=== PATIENT | male | born 1950 | race Caucasian/White ===

== ENCOUNTER 2023-07-18 07:57 | Day surgery (SDC) | payer MEDICARE, BC, SELFPAY ==
--- NOTE | 2023-07-18 | PATH_ITS ---
[facility] Accession Number: [id number] No. of containers..02 Tissue . 01 Material submitted: . PART A: colon - SIGMOID POLYP PART B: rectum - RECTAL POLYP . 01 Diagnosis: A-COLON, SIGMOID, POLYP BIOPSY: BENIGN POLYPOID COLONIC MUCOSA WITH FOCAL HYPERTROPHIC MUSCULARIS MUCOSAE SUGGESTIVE OF POSSIBLE BENIGN COLONIC LEIOMYOMA. NEGATIVE FOR HYPERPLASIA OR DYSPLASIA. SEE NOTE - B- COLON, RECTUM, POLYP BIOPSY: MULTIPLE FRAGMENTS OF TUBULAR ADENOMA/S - Note for part A: Multiple levels were performed and shows focal hypertrophic muscularis mucosae suggestive of focal benign colonic leiomyoma, and was negative for dysplasia. TXN 07/31/2023 1412 Local . 01 Electronically signed: . Martin Worthy MD, Pathologist NPI- [id number] . 01 Gross description: . Part A: SIGMOID POLYP: Received in formalin is 1 fragment(s) of walker, soft tissue measuring 0.8 x 0.6 x 0.4 cm submitted entirely in 1 cassette(s) Part B: RECTAL POLYP: Received in formalin is 4 fragment(s) of walker, soft tissue measuring 0.6 x 0.4 x 0.4 cm to 0.2 x 0.1 x 0.1 cm submitted entirely in 1 cassette(s) /AAY 07/23/2023 0736 Local . 01 Pathologist provided ICD-10: Z12.11 . 01 CPT . 149496, 464484 Specimen Comment: A courtesy copy of this report has been sent to [phone] Performed at: 01 [facility] [address] [place] [address] Suite [facility], [place], [place] [id number] MD Diego Perdomo MD Phone: [phone]
[2023-07-18 08:24] VITALS: BMI 23.7
[2023-07-18] MEDS: LACTATED RINGERS 1,000 ML 42 ML IV (08:41)
--- NOTE | 2023-07-18 09:28 | PM.HP.1 ---
History of Present Illness History of Present Illness Date Patient Seen: 07/18/23 Time Patient Seen: 09:28 Chief complaint: Screening Colonoscopy Narrative: Rashi is a 72-year-old man who is here for colonoscopy. His last 1 was approximately 5 years ago in [place]. He believes he has had polyps removed. He has no known family history of colon cancer. PFSH Social History household members: spouse Smoking Status: Never smoker alcohol intake: current Meds Home Medications and Allergies Home Medications Medication Instructions Recorded Confirmed Type sodium sul 1.479 gram-potas ch See Rx Instructions PO PER PKG DIR 05/27/23 07/18/23 Rx 0.188 gram-magnes sul 0.225 gram #24 tabs tablet (Sutab) valacyclovir 1 gram tablet 1,000 mg PO TID 7 days #21 tabs 07/13/23 07/18/23 Rx benazepril 40 mg tablet 40 mg PO DAILY 07/18/23 07/18/23 History tamsulosin 0.4 mg capsule 0.4 mg PO DAILY 07/18/23 07/18/23 History Allergies Allergy/AdvReac Type Severity Reaction Status Date / Time No Known Drug Allergies Allergy Unverified 07/13/23 14:11 Exam Const General: healthy appearing Assessment & Plan Assessment and plan (1) History of colon polyps: Status: Acute Plan We reviewed the risks and benefits of colonoscopy for colon cancer screening and he would like to proceed.
--- NOTE | 2023-07-18 10:05 | PM.OP.COLON ---
Operative Date/Time/Diagnoses Date of procedure: 07/18/23 Time of procedure: 10:05 Pre-op diagnosis: History of polyps Post-op diagnosis: same Procedure & Clinicians Study performed: Colonoscopy Same procedure as scheduled: Yes Surgeon: Zane Antoine Procedure Notes Procedure in detail: Surgeon: Zane Antoine MD Anesthesia: Freddie Bhandari CRNA Procedure: The patient was brought to the endoscopy suite, placed in left lateral decubitus position. The patient was connected to monitoring devices. A time-out was performed. Sedation was administered. Once the patient was adequately sedated, a digital rectal exam was performed and was normal. The scope was then inserted and advanced to the cecum where the appendiceal orifice was identified and photographed. The scope was then slowly withdrawn over greater than 6 minutes. The mucosa was thoroughly inspected. There was moderate sigmoid diverticulosis. There was a 1 cm polyp in the sigmoid colon removed with a hot snare. There was a flat 8 mm polyp in the rectum removed with a hot snare. The scope was retroflexed in the rectum. No other abnormalities were seen. The scope was straightened and removed. The patient was awakened and brought to recovery. Scope withdrawal time: 11 minutes Sedation time: 21 minutes EBL: 2 mL Findings: 1 cm polyp sigmoid and 8 mm polyp in the rectum Post-procedure Disposition: PACU
[2023-07-18 10:06] VITALS: BP 115/65; PULSE 52; RESP 17; TEMP 36.2; O2SAT 92
[2023-07-18 10:11] VITALS: BP 107/66; PULSE 46; RESP 27; O2SAT 94
[2023-07-18 10:16] VITALS: BP 125/77; PULSE 45; RESP 18; O2SAT 95
[2023-07-18 10:26] VITALS: BP 153/88; PULSE 45; RESP 11; O2SAT 100
== END 2023-07-18 10:42 | disposition home or self-care (01) ==
PROVIDERS: PCP Family Medicine; Referring Provider Surgery; Visit Provider Surgery
PROC: 0DJD8ZZ Inspection of Lower Intestinal Tract, Via Natural or Artificial Opening Endoscopic (ICD-10-PCS; CPT 45378; principal; 2023-07-18 09:15)
DX: Z12.11 Encounter for screening for malignant neoplasm of colon (principal); Z86.010 Personal history of colon polyps; K57.30 Diverticulosis of large intestine without perforation or abscess without bleeding; D12.6 Benign neoplasm of colon, unspecified
CPT/HCPCS: 45385; J2704

== ENCOUNTER → 2024-03-08 09:17 | Outpatient (CLI) | payer MEDICARE, BC, SELFPAY ==
[2024-03-08 10:26] LABS: Influenza A - CEPHEID Flu A NEGATIVE (NEGATIVE); Influenza B - CEPHEID Flu B NEGATIVE (NEGATIVE); Respiratory Syncytial Virus Negative (Negative)
[2024-03-08 10:27] LABS: COVID-19 CEPHEID 4-PLEX PCR Negative (Negative)
== END ==
PROVIDERS: PCP Family Medicine; Visit Provider Physician Assistant Medical
DX: R05.1 Acute cough (principal)
CPT/HCPCS: 0241U

== ENCOUNTER → 2024-08-25 11:11 | Outpatient (CLI) | payer MEDICARE, BC, SELFPAY ==
--- NOTE | 2024-08-25 11:12 | DI.US.S_ITS ---
PROCEDURE: US ABD AORTA ANEURYSM SCREEN INDICATIONS: FORMER SMOKER TECHNIQUE: Real time scanning was performed of the aorta and iliac arteries, with image documentation. COMPARISON: None. FINDINGS: Aorta: Proximal aortic diameter measures 2.2 cm. Mid-aorta measures 2.2 cm. Distal aortic diameter is 1.8 cm. Iliac arteries: Right common iliac artery measures 1.6 cm. Left common iliac artery measures 1.2 cm. IMPRESSION: Negative for aneurysm. Dictated by: Wander Cavazos M.D. on 08/25/2024 at 12:47 Approved by: Wander Cavazos M.D. on 08/25/2024 at 12:47
== END ==
PROVIDERS: PCP Family Medicine; Referring Provider Family Medicine; Visit Provider Family Medicine
DX: Z13.6 Encounter for screening for cardiovascular disorders (principal); Z87.891 Personal history of nicotine dependence
CPT/HCPCS: 76706